=== PATIENT | female | born 1995 | race African-American/Black ===

== ENCOUNTER 2016-06-25 18:39 | Emergency (ER) | payer SELFPAY ==
[2016-06-25 18:59] VITALS: BP 117/68
[2016-06-25] MEDS ORDERED: LIDOCAINE 1% / SOD BICARB 8.4% 20 ML VIAL. IJ ONE (19:15)
--- NOTE | 2016-06-25 19:18 | PHYS DOC ---
Past Medical History Past Medical History: No Pertinent History Past Surgical History: Appendectomy Alcohol Use: Occasionally Drug Use: Marijuana Adult General Chief Complaint Chief Complaint: ABSCESS HPI HPI Patient is a 21 year old female presents to the emergency department stating that she has had an abscess in the left upper inner thigh for the last 3 years. She states that it does come and go. She states that the abscesses time his been there for approximately 3 days. She states that when she squeezes the area she does get yellow drainage coming out from the edges. She denies being on any antibiotics recently. She states that she has not had a menstrual period for quite some time. She denies being on any type of control. Patient states tetanus is up-to-date. Review of Systems Review of Systems Constitutional: Denies fever or chills [] Eyes: Denies change in visual acuity, redness, or eye pain [] HENT: Denies nasal congestion or sore throat [] Respiratory: Denies cough or shortness of breath [] Cardiovascular: No additional information not addressed in HPI [] GI: Denies abdominal pain, nausea, vomiting, bloody stools or diarrhea [] : Denies dysuria or hematuria [] Musculoskeletal: Denies back pain or joint pain [] Integument: Denies rash or skin lesions. C/o abscess left upper inner thigh Neurologic: Denies headache, focal weakness or sensory changes [] Current Medications Current Medications Current Medications Medications (Trade) Dose Ordered Sig/Lito Start Time Stop Time Status Last Admin Dose Admin Lidocaine/Sodium Bicarbonate (Buffered Lidocaine 1%) 20 ml 1X ONCE 06/25/16 19:15 06/25/16 19:17 DC 06/25/16 19:30 20 ML Allergies Allergies Allergies Coded Allergies Type Severity Reaction Last Updated Verified No Known Drug Allergies 02/09/14 No Physical Exam Physical Exam Constitutional: Well developed, well nourished, no acute distress, non-toxic appearance. [] HENT: Normocephalic, atraumatic, bilateral external ears normal, oropharynx moist, no oral exudates, nose normal. [] Eyes: PERRLA, EOMI, conjunctiva normal, no discharge. [] Neck: Normal range of motion, no tenderness, supple, no stridor. [] Cardiovascular:Heart rate regular rhythm Lungs & Thorax: no respiratory distress Skin: Warm, dry, no erythema, no rash. Patient with an abscess noted to the left inner upper thigh that appears to be the size of a quarter. No drainage or discharge noted there does appear to be fluctuation noted in the area. Back: No tenderness Extremities: No tenderness, no cyanosis, no clubbing, ROM intact, no edema. [] Neurologic: Alert and oriented X 3, normal motor function, normal sensory function, no focal deficits noted. [] Psychologic: Affect normal, judgement normal, mood normal. [] Current Patient Data Vital Signs Vital Signs Date Time Temp Pulse Resp B/P Pulse Ox O2 Delivery O2 Flow Rate FiO2 06/25/16 18:59 97.2 109 18 100 Room Air 97.2 EKG EKG [] Radiology/Procedures Radiology/Procedures [] Course & Med Decision Making Course & Med Decision Making Pertinent Labs and Imaging studies reviewed. (See chart for details) She was instructed to use warm moist packs over the area 4 times a day 20 minutes at a time. Patient will be placed on Bactrim is test was negative. Recommended following up to primary care physician next 3-5 days. Signs and symptoms to return back to emergency department been provided. Patient agrees with discharge instructions treatment regimens and follow-up recommendations. [] Dragon Disclaimer Dragon Disclaimer This electronic medical record was generated, in whole or in part, using a voice recognition dictation system. Departure Departure Impression: Primary Impression: Abscess Disposition: 01 HOME, SELF-CARE Condition: STABLE Referrals: NON,STAFF (PCP) Patient Instructions: Abscess, [id number] Additional Instructions: Activity as tolerated. Tylenol or ibuprofen for pain and discomfort. Warm moist packs to the area 20 minutes at a time 4 times a day. Medication as prescribed. Keep a dressing over the area to prevent drainage onto clothing. Follow-up with primary care physician next 3-5 days. Return back to emergency prior signs symptoms of become worse. Scripts Sulfamethoxazole/Trimethoprim (Bactrim Ds Tablet)1 Each Tablet1 Tab PO BID #20 TAB Prov:DEANDRE PINEDA Michael [employer] 06/25/16 Incision and Drainage Incision and Drainage : Site: left upper inner thigh Blade Size: 11 I & D Procedure: betadine prep Progress Site was cleaned with Betadine. 1% lidocaine buffered was injected into the area approximately 3 L. #11 play was used to incise the area with then clear drainage noted from the site. No packing was placed. DEANDRE PINEDA APRN Jun 25, 2016 19:18
[2016-06-25] MEDS ORDERED: SULF1TAB24 PO (20:03)
== END 2016-06-25 20:05 | disposition home or self-care (01) ==
LOC: ER 18:39
DX: L02.416 Cutaneous abscess of left lower limb (principal); F12.10 Cannabis abuse, uncomplicated
CPT/HCPCS: 10060; 81025; 99283-25

== ENCOUNTER 2016-07-09 15:41 | Emergency (ER) | payer SELFPAY ==
[~2016-07-09] VITALS: Ht 157.5 cm; Wt 63.5 kg
[~2016-07-09 15:41] MED LIST: SULF1TAB24 PO
[2016-07-09 15:44] VITALS: BP 103/72
--- NOTE | 2016-07-09 15:59 | PHYS DOC ---
Past Medical History Past Medical History: No Pertinent History Past Surgical History: Appendectomy Alcohol Use: Occasionally Drug Use: Marijuana Adult General Chief Complaint Chief Complaint: SEXUALLY TRANSMITTED DISEASE HPI HPI Patient is a 21 year old who presents emergency Department today with a request of wanting to be screened for STDs, including hepatitis and HIV as her partner has been seen others. Patient states that she has not been experiencing any pelvic pain, dysuria, hematuria, vaginal discharge or odor. Review of Systems Review of Systems Constitutional: Denies fever or chills [] Eyes: Denies change in visual acuity, redness, or eye pain [] HENT: Denies nasal congestion or sore throat [] Respiratory: Denies cough or shortness of breath [] Cardiovascular: No additional information not addressed in HPI [] GI: Denies abdominal pain, nausea, vomiting, bloody stools or diarrhea [] : Denies dysuria or hematuria [] Musculoskeletal: Denies back pain or joint pain [] Integument: Denies rash or skin lesions [] Neurologic: Denies headache, focal weakness or sensory changes [] Endocrine: Denies polyuria or polydipsia [] Allergies Allergies Allergies Coded Allergies Type Severity Reaction Last Updated Verified No Known Drug Allergies 02/09/14 No Physical Exam Physical Exam Constitutional: Well developed, well nourished, no acute distress, non-toxic appearance. [] HENT: Normocephalic, atraumatic, bilateral external ears normal, oropharynx moist, no oral exudates, nose normal. [] Eyes: PERRLA, EOMI, conjunctiva normal, no discharge. [] Neck: Normal range of motion, no tenderness, supple, no stridor. [] Cardiovascular:Heart rate regular rhythm, no murmur [] Lungs & Thorax: Bilateral breath sounds clear to auscultation [] Abdomen: Bowel sounds normal, soft, no tenderness, no masses, no pulsatile masses. [] Skin: Warm, dry, no erythema, no rash. [] Back: No tenderness, no CVA tenderness. [] Extremities: No tenderness, no cyanosis, no clubbing, ROM intact, no edema. [] Neurologic: Alert and oriented X 3, normal motor function, normal sensory function, no focal deficits noted. [] Psychologic: Affect normal, judgement normal, mood normal. [] Current Patient Data Vital Signs Vital Signs Date Time Temp Pulse Resp B/P Pulse Ox O2 Delivery O2 Flow Rate FiO2 07/09/16 15:44 99.0 80 16 100 Room Air 99.0 EKG EKG [] Radiology/Procedures Radiology/Procedures [] Course & Med Decision Making Course & Med Decision Making I explained to the patient that we don't routinely screened for HIV and hepatitis here in the emergency department. I did inform her that we do test for Chlamydia, gonorrhea, Trichomonas and urinary tract infections which require a pelvic exam. Patient states that she would prefer to go to the health department to have this done. I offered to provide patient discharge instructions prior to her leaving the department. She declined and walked out. Dragon Disclaimer Dragon Disclaimer This electronic medical record was generated, in whole or in part, using a voice recognition dictation system. Departure Departure Impression: Primary Impression: Concern about STD in female without diagnosis Disposition: 01 HOME, SELF-CARE Condition: STABLE Referrals: NO PCP (PCP) ZIYAD RÍOS Jul 09, 2016 15:59
== END 2016-07-09 16:05 | disposition home or self-care (01) ==
LOC: ER 15:41
DX: Z11.3 Encounter for screening for infections with a predominantly sexual mode of transmission (principal); F12.10 Cannabis abuse, uncomplicated
CPT/HCPCS: 99281

== ENCOUNTER 2018-03-03 12:39 | Emergency (ER) | payer SELFPAY ==
[~2018-03-03] VITALS: Ht 157.5 cm; Wt 63.5 kg
[2018-03-03 12:49] VITALS: BP 144/66
--- NOTE | 2018-03-03 14:15 | RAD ---
Right lower extremity venous ultrasound, 03/03/2018 : History: Right calf swelling Duplex evaluation including grayscale, color flow and spectral Doppler analysis was performed. The femoral and popliteal veins show no filling defects to suggest DVT. The visualized deep veins in the right calf are unremarkable. We also scanned the area of palpable concern posteriorly in the calf. There is an oval-shaped isoechoic subcutaneous nodule measuring 11 x 7 x 4 mm. Its margins are smooth. The appearance is nonspecific. It cannot be connected to a vascular structure. IMPRESSION: 1. There is no sonographic evidence of deep vein thrombosis in the right lower extremity. 2. Nonspecific small subcutaneous nodule. Electronically signed by: Huy Martinez MD (03/03/2018 2:11 PM) [facility]
--- NOTE | 2018-03-03 14:30 | PHYS DOC ---
Past Medical History Past Medical History: No Pertinent History Past Surgical History: Appendectomy Alcohol Use: Occasionally Drug Use: Marijuana Adult General Chief Complaint Chief Complaint: LOWER EXT PAIN HPI HPI Patient is a 22 year old female presenting to the ED today complaining of a hard mass on her right calf that she noted a week ago. Patient denies any known injury. Denies any long car or air travel. Denies any use of hormones. Denies any chance she is . Denies any chest pain or shortness of breath. Patient denies any pain to the area. Review of Systems Review of Systems Constitutional: Denies fever or chills [] Eyes: Denies change in visual acuity, redness, or eye pain [] HENT: Denies nasal congestion or sore throat [] Respiratory: Denies cough or shortness of breath [] Cardiovascular: No additional information not addressed in HPI [] GI: Denies abdominal pain, nausea, vomiting, bloody stools or diarrhea [] : Denies dysuria or hematuria [] Musculoskeletal: Reports a hard swollen area on the right calf. Integument: Denies rash or skin lesions [] Neurologic: Denies headache, focal weakness or sensory changes [] Endocrine: Denies polyuria or polydipsia [] All other systems were reviewed and found to be within normal limits, except as documented in this note. Allergies Allergies Allergies Coded Allergies Type Severity Reaction Last Updated Verified No Known Drug Allergies 02/09/14 No Physical Exam Physical Exam Constitutional: Well developed, well nourished, no acute distress, non-toxic appearance. [] HENT: Normocephalic, atraumatic, bilateral external ears normal, oropharynx moist, no oral exudates, nose normal. [] Eyes: PERRLA, EOMI, conjunctiva normal, no discharge. [] Neck: Normal range of motion, no tenderness, supple, no stridor. [] Cardiovascular:Heart rate regular rhythm, no murmur [] Lungs & Thorax: Bilateral breath sounds clear to auscultation [] Abdomen: Bowel sounds normal, soft, no tenderness, no masses, no pulsatile masses. [] Skin: Warm, dry, no erythema, no rash. [] Back: No tenderness, no CVA tenderness. [] Extremities: Right calf with a superficial swollen area approximately 10X3 mm, the area is firm, non tender no redness no warmth. Negative Homans sign to the right lower extremity. Neurologic: Alert and oriented X 3, normal motor function, normal sensory function, no focal deficits noted. [] Psychologic: Affect normal, judgement normal, mood normal. [] Current Patient Data Vital Signs Vital Signs Date Time Temp Pulse Resp B/P (MAP) Pulse Ox O2 Delivery O2 Flow Rate FiO2 03/03/18 12:49 98.0 82 18 144/66 (92) 100 Room Air 98.0 EKG EKG [] Radiology/Procedures Radiology/Procedures [] Course & Med Decision Making Course & Med Decision Making Pertinent Labs and Imaging studies reviewed. (See chart for details) This is a 22-year-old female patient presenting to the ED today with a swollen area on the right calf for 1 week. No known injury. See history of present illness. Venous Doppler of the right lower extremity was negative for DVT, venous Doppler noted for nonspecific small subcutaneous nodule. Patient was advised to apply warm compresses to the area. Aspirin recommended for pain if any. Follow-up with PCP in 1-2 weeks. Dragon Disclaimer Dragon Disclaimer This electronic medical record was generated, in whole or in part, using a voice recognition dictation system. Departure Departure Impression: Primary Impression: Subcutaneous nodule Disposition: 01 HOME, SELF-CARE Condition: STABLE Referrals: NO PCP (PCP) Follow-up with your doctor in 1-2 weeks Patient Instructions: Edema, [id number] Additional Instructions: You were evaluated in the emergency room and noted to have subcutaneous mass/ nodule to your right calf. Apply warm compresses to the area. Take aspirin as needed for pain. Follow-up with your doctor in 1-2 weeks. Come back to the ED at any point symptoms worsen. ROMINA CASTANEDA APRN Mar 03, 2018 14:30
== END 2018-03-03 14:46 | disposition home or self-care (01) ==
LOC: ER 12:39
DX: R22.41 Localized swelling, mass and lump, right lower limb (principal); Z90.89 Acquired absence of other organs
CPT/HCPCS: 93971; 99284

== ENCOUNTER 2018-10-19 12:20 | Emergency (ER) | payer SELFPAY ==
[~2018-10-19] VITALS: Ht 157.5 cm; Wt 65.3 kg
[2018-10-19 12:23] VITALS: BP 126/84
[2018-10-19] MEDS ORDERED: SULF1TAB24 PO (12:41)
--- NOTE | 2018-10-19 12:41 | PHYS DOC ---
Past Medical History Past Medical History: No Pertinent History Past Surgical History: Appendectomy Alcohol Use: Occasionally Drug Use: Marijuana Adult General Chief Complaint Chief Complaint: LACERATION/AVULSION [facility] HPI Patient is a 23 year old female who presents with right forearm laceration that occurred 3 days ago after a window fell on her right forearm. Patient states she has this new "raggedy" house she is working on and the windows and loose one fell on her, she states the glass scrapped her but did not get lodged in the skin. Patient is also requesting a note for work. Review of Systems Review of Systems Constitutional: Denies fever or chills [] Eyes: Denies change in visual acuity, redness, or eye pain [] HENT: Denies nasal congestion or sore throat [] Respiratory: Denies cough or shortness of breath [] Cardiovascular: No additional information not addressed in HPI [] GI: Denies abdominal pain, nausea, vomiting, bloody stools or diarrhea [] : Denies dysuria or hematuria [] Musculoskeletal: Denies back pain or joint pain [] Integument: reports right forearm laceration. Neurologic: Denies headache, focal weakness or sensory changes [] All other systems were reviewed and found to be within normal limits, except as documented in this note. Allergies Allergies Allergies Coded Allergies Type Severity Reaction Last Updated Verified No Known Drug Allergies 02/09/14 No Physical Exam Physical Exam Constitutional: Well developed, well nourished, no acute distress, non-toxic appearance. [] HENT: Normocephalic, atraumatic, bilateral external ears normal, oropharynx moist, no oral exudates, nose normal. [] Eyes: PERRLA, EOMI, subconjunctival hemorrhage noted on the left lateral eye, no discharge. [] Neck: Normal range of motion, no tenderness, supple, no stridor. [] Cardiovascular:Heart rate regular rhythm, no murmur [] Lungs & Thorax: Bilateral breath sounds clear to auscultation [] Abdomen: Bowel sounds normal, soft, no tenderness, no masses, no pulsatile masses. [] Skin: Warm, dry, right ventral forearm proximal end with a laceration approximately 2 cm long, there is surrounding cellulitis around this laceration. There is no drainage. Full range of motion to the right forearm. Neurovascular exam is intact to the right lower. Another superficial laceration noted on patient's lower lip. Patient denies any abuse. Back: No tenderness, no CVA tenderness. [] Extremities: No tenderness, no cyanosis, no clubbing, ROM intact, no edema. [] Neurologic: Alert and oriented X 3, normal motor function, normal sensory function, no focal deficits noted. [] Psychologic: Affect normal, judgement normal, mood normal. [] EKG EKG [] Radiology/Procedures Radiology/Procedures [] Course & Med Decision Making Course & Med Decision Making Pertinent Labs and Imaging studies reviewed. (See chart for details) This is a 23-year-old female patient who presents to the ED today with a laceration to the right forearm that occurred 3 days ago. The laceration has surrounding cellulitis. We will send patient home on Bactrim. Instructed to keep the area clean and dry. Tetanus up-to-date. Follow-up with primary care doctor in 1-2 weeks. Off note patient has subconjunctival hemorrhage on the left eye and another laceration on the lower lip. She is denying any abuse. Dragon Disclaimer Dragon Disclaimer This electronic medical record was generated, in whole or in part, using a voice recognition dictation system. Departure Departure Impression: Primary Impression: Forearm laceration Additional Impressions: Subconjunctival hemorrhage of left eye Skin infection Disposition: 01 HOME, SELF-CARE Condition: STABLE Referrals: NO PCP (PCP) follow up with your doctor in 1 week Patient Instructions: Laceration Care, Adult Additional Instructions: You were evaluated in the ER for laceration to the right forearm which appears infected. Please complete your antibiotics. Follow up with your doctor in 1-2 weeks Scripts Sulfamethoxazole/Trimethoprim (BACTRIM DS TABLET) 1 Each Tablet 1 TAB PO BID, #20 TAB Prov: ROMINA CASTANEDA APRN 10/19/18 Problem Qualifiers Primary Impression: Forearm laceration Encounter type: initial encounter Laterality: left Qualified Codes: S51.812A - Laceration without foreign body of left forearm, initial encounter ROMINA CASTANEDA APRN Oct 19, 2018 12:41
== END 2018-10-19 12:50 | disposition home or self-care (01) ==
LOC: ER 12:20
DX: S51.811A Laceration without foreign body of right forearm, initial encounter (principal); S01.511A Laceration without foreign body of lip, initial encounter; L03.113 Cellulitis of right upper limb; H11.32 Conjunctival hemorrhage, left eye; Z90.89 Acquired absence of other organs; W20.8XXA Other cause of strike by thrown, projected or falling object, initial encounter; Y93.89 Activity, other specified; Y92.89 Other specified places as the place of occurrence of the external cause; Y99.8 Other external cause status
CPT/HCPCS: 99283

== ENCOUNTER 2021-03-20 19:52 | Emergency (ER) | payer SELFPAY ==
[~2021-03-20] VITALS: Ht 160 cm; Wt 76.8 kg
[2021-03-20 20:30] VITALS: BP 120/60
--- NOTE | 2021-03-20 20:44 | PHYS DOC ---
Past Medical History Past Medical History: No Pertinent History Past Surgical History: Appendectomy Smoking Status: Current Every Day Smoker Alcohol Use: Occasionally Drug Use: Marijuana General Adult EDM: Chief Complaint: SKIN RASH/ABSCESS HPI: HPI: Patient is a 25-year-old female that presents today with a raised abscess area to her left inner thigh. Patient states is been going on for a little over a month but could progressively gotten worse it did form a head a couple of days ago but is very painful to touch. Patient does shave in her groin area in her bikini line area and does have coarse hair. Patient denies fever and chills, and does state her tetanus is up-to-date. Review of Systems: Review of Systems: Constitutional: Denies fever or chills. [] Eyes: Denies change in visual acuity. [] HENT: Denies nasal congestion or sore throat. [] Respiratory: Denies cough or shortness of breath. [] Cardiovascular: Denies chest pain or edema. [] GI: Denies abdominal pain, nausea, vomiting, bloody stools or diarrhea. [] : Denies dysuria. [] Musculoskeletal: Denies back pain or joint pain. [] Integument: Raised area in the left inner thigh Neurologic: Denies headache, focal weakness or sensory changes. [] Endocrine: Denies polyuria or polydipsia. [] Lymphatic: Denies swollen glands. [] Psychiatric: Denies depression or anxiety. [] Heart Score: C/O Chest Pain: N/A Risk Factors: Risk Factors: DM, Current or recent (<one month) smoker, HTN, HLP, family history of CAD, obesity. Risk Scores: Score 0 - 3: 2.5% MACE over next 6 weeks - Discharge Home Score 4 - 6: 20.3% MACE over next 6 weeks - Admit for Clinical Observation Score 7 - 10: 72.7% MACE over next 6 weeks - Early Invasive Strategies Allergies: Allergies: Allergies Coded Allergies Type Severity Reaction Last Updated Verified No Known Drug Allergies 02/09/14 No Physical Exam: PE: Constitutional: Well developed, well nourished, no acute distress, non-toxic appearance. [] HENT: Normocephalic, atraumatic, bilateral external ears normal, oropharynx moist, no oral exudates, nose normal. [] Eyes: PERRLA, EOMI, conjunctiva normal, no discharge. [] Neck: Normal range of motion, no tenderness, supple, no stridor. [] Cardiovascular:Heart rate regular rhythm, no murmur [] Lungs & Thorax: Bilateral breath sounds clear to auscultation [] Abdomen: Bowel sounds normal, soft, no tenderness, no masses, no pulsatile masses. [] Skin: Raised area with a pustule head noted to the left inner thigh approximately 2 cm x 1 cm painful to touch no erythema noted around the area. Back: No tenderness, no CVA tenderness. [] Extremities: No tenderness, no cyanosis, no clubbing, ROM intact, no edema. [] Neurologic: Alert and oriented X 3, normal motor function, normal sensory function, no focal deficits noted. [] Psychologic: Affect normal, judgement normal, mood normal. [] Current Patient Data: Vital Signs: Vital Signs Date Time Temp Pulse Resp B/P (MAP) Pulse Ox O2 Delivery O2 Flow Rate FiO2 03/20/ 20:30 98.2 71 14 120/60 (80) 100 Room Air 98.2 EKG: EKG: [] Radiology/Procedures: Radiology/Procedures: Indication: abscess LEFT INNER TIGHT Procedure: The patient was positioned appropriately. Local anesthesia was LIDOCAINE 1% 2ML WAS USED TO anesthetize the area. An incision was then made over the apex of the lesion and 5ML material was expressed. The drainage cavity was irrigated, ABSCESS NOT DEEP ENOUGH TO NEED PACKING. DRESSING APPLIED BY NURSING STAFF. The patients tetanus status updated as needed. The patient tolerated the procedure well. Complications: none.[] Course & Med Decision Making: Course & Med Decision Making Pertinent Labs and Imaging studies reviewed. (See chart for details) Patient given instructions of care of the I&D area, patient to clean wound twice daily with mild soap and water, watch for any signs and symptoms of infection, and take Keflex twice daily for 5 days. Patient verbalized understanding of discharge instructions and is okay with the plan of care to discharge patient home. Barton Disclaimer: Estela Disclaimer: This electronic medical record was generated, in whole or in part, using a voice recognition dictation system. Departure Departure Impression: Primary Impression: Abscess Disposition: HOME / SELF CARE / HOMELESS Condition: STABLE Referrals: NO PCP (PCP) Patient Instructions: Abscess, Care After Additional Instructions: Keep wound clean and dry Clean wound twice daily with antibacterial soap watching for any signs of infe ction, which may include redness, swelling, increased pain, and increased drainage. Follow-up with one of the clinics in the brochure provided or one of the prime physicians in the brochure for further follow-up of this skin condition. Keflex 500mg take one tablet twice daily for 7 days. Tylenol or Motrin as needed for pain Scripts Cephalexin (CEPHALEXIN) 500 Mg Tablet 1 CAP PO BID for 5 Days, #10 CAP Prov: CECILIA GONZALEZ APRN 03/20/21 CECILIA GONZALEZ APRN Mar 20, 2021 20:44
[2021-03-20] MEDS ORDERED: LIDOCAINE 2% Multi-Dose 20 ML VIAL. IJ ONE (20:45)
[2021-03-20] MEDS ORDERED: CEPH500T PO (21:33)
== END 2021-03-20 21:45 | disposition home or self-care (01) ==
LOC: ER 19:52
DX: L02.416 Cutaneous abscess of left lower limb (principal); F17.200 Nicotine dependence, unspecified, uncomplicated
CPT/HCPCS: 10060; 99283